=== PATIENT | male | born 1990 | race Caucasian/White ===

== ENCOUNTER 2021-01-07 04:04 | Inpatient (IN) | payer MEDICAID ==
[~2021-01-07] VITALS: Ht 177.8 cm; Wt 74.8 kg
[2021-01-07 04:14] VITALS: BP 135/98
--- NOTE | 2021-01-07 04:14 | NUR ---
TO BED AMBULATORY
--- NOTE | 2021-01-07 04:25 | NUR ---
30 YO M BIB WITH C/C OF R ARM 9 PAIN DESCRIBES CHRONIC PAIN ALL OVER PER PT X4 DAYS. PTS ARM IS SWOLLEN FROM AXILLA DOWN TO HAND. UPPER INNER RIGHT ARM IS HOT TO TOUCH, RED AND TENDER. UPPER ARM ALSO FEELS HARD TO TOUCH. PITTING EDEMA +1 ON RIGHT HAND. PT HAS LIMITED ROM. PAIN INCREASES WITH MOVEMENT, STATES NOTHING MAKES IT FEEL BETTER. PT STATES HE USES HEROIN BUT DENIES INJECTING INTO R ARM. LAST TIME PT USED HEROIN WAS 01/06. PT STATED HE FEELS SOB. SAT AT 98%, TACHY AT 109. PT GIVEN WATER PER REQUEST. PLACED IN GOWN. ALL NEEDS MET AT THIS TIME. BED LOCKED IN LOWEST POSITION, BOILER WATER TESTER RAILS X1. HX AND RX DENIES ALLERG: AUMENTIN (SEVERE) AND KETOROLAC Addendum: 01/07/21 at 0449 by [facility] 30 YO M BIB WITH C/C OF R ARM 910 PAIN DESCRIBES CHRONIC PAIN ALL OVER PER PT X4 DAYS. PTS ARM IS SWOLLEN FROM AXILLA DOWN TO HAND. UPPER INNER RIGHT ARM IS HOT TO TOUCH, RED AND TENDER. UPPER ARM ALSO FEELS HARD TO TOUCH. PITTING EDEMA +1 ON RIGHT HAND. PT HAS LIMITED ROM. PAIN INCREASES WITH MOVEMENT, STATES NOTHING MAKES IT FEEL BETTER. PT STATES HE USES HEROIN BUT DENIES INJECTING INTO R ARM. LAST TIME PT USED HEROIN WAS 01/06. PT STATED HE FEELS SOB. SAT AT 98%, TACHY AT 109. PT GIVEN WATER PER REQUEST. PLACED IN GOWN. ALL NEEDS MET AT THIS TIME. BED LOCKED IN LOWEST POSITION, BOILER WATER TESTER RAILS X1. HX AND RX DENIES ALLERG: AUMENTIN (SEVERE) AND KETOROLAC
[2021-01-07] MEDS ORDERED: NACL 0.9% 1,000 ML IV ONE ×2 (04:50→04:55)
[2021-01-07] MEDS ORDERED: VANCOMYCIN 1,000 MG in DEXTROSE 5% 250 ML IV ONE (04:50)
[2021-01-07] MEDS ORDERED: VANCOMYCIN 1,000 MG VIAL ONE (04:53)
--- NOTE | 2021-01-07 04:55 | NUR ---
BALTAZAR SWAB COLLECTED AND WALKED TO LAB
--- NOTE | 2021-01-07 05:29 | NUR ---
ULTRASOUND AT BEDSIDE
[2021-01-07 05:38] LABS: BASOPHILS % (AUTO) 0.1 % (0.0-2.0); EOSINOPHILS # (AUTO) 0.1 K/uL (0-0.4); EOSINOPHILS % (AUTO) 0.2 % (0.0-4.0); HEMATOCRIT 32.3 % (36-52); HEMOGLOBIN 10.4 g/dL (12.0-18.0); LYMPHOCYTES # (AUTO) 1.4 K/uL (2.0-11.5); LYMPHOCYTES % (AUTO) 5.2 % (20.5-51.1); MEAN CORPUSCULAR HEMOGLOBIN 24 pg (27-31); MEAN CORPUSCULAR HGB CONC 32 g/dL (33-37); MEAN CORPUSCULAR VOLUME 74.8 fL (80-94); MONOCYTES # (AUTO) 2.2 K/uL (0.8-1.0); MONOCYTES % (AUTO) 8.2 % (1.7-9.3); NEUTROPHILS # (AUTO) 23.7 K/uL (1.8-7.7); NEUTROPHILS % (AUTO) 86.3 % (42.2-75.2); PLATELET COUNT (AUTO) 438 K/uL (140-450); RED BLOOD CELL COUNT(AUTO) 4.32 MIL/uL (4.20-6.10); RED CELL DISTRIBUTION WIDTH 16.4 % (11.6-13.7)
[2021-01-07 05:39] LABS: WHITE BLOOD COUNT (AUTO) 27.4 K/uL (4.8-10.8)
[2021-01-07] MEDS ORDERED: PIPERACILLIN/TAZOBACTAM 3.375 GM in DEXTROSE 5% 50 ML IV ONE (05:55)
[2021-01-07 06:00] LABS: ALBUMIN 0.9 g/dL (3.4-5.0); ANION GAP 11.5 (8-16); CARBON DIOXIDE 26.2 mmol/L (21-32); POTASSIUM 3.7 mmol/L (3.5-5.1); TOTAL BILIRUBIN 0.2 mg/dL (0.0-1.0)
--- NOTE | 2021-01-07 06:02 | NUR ---
RAD AT BEDSIDE.
[2021-01-07] MEDS ORDERED: KETOROLAC 15 MG/ML VIAL IVP ONE (06:15)
[2021-01-07] MEDS ORDERED: cefTRIAXone 1,000 MG VIAL ONE (06:22)
[2021-01-07] MEDS ORDERED: NACL 0.9% 1,000 ML IV SCH (06:30)
[2021-01-07 06:48] LABS: APPEARANCE,URINE CLEAR (CLEAR); BILIRUBIN,URINE NEGATIVE (NEGATIVE); BLOOD, URINE 1+ (NEGATIVE); COLOR,URINE YELLOW (YELLOW); LEUKOCYTE ESTERASE ,URINE NEGATIVE (NEGATIVE); NITRITE, URINE NEGATIVE (NEGATIVE); UGLUCOSE NEGATIVE (NEGATIVE)
[2021-01-07] MEDS ORDERED: ACETAMINOPHEN EXTRA STRENGTH 500 MG TAB PO ONE (07:00)
[2021-01-07 07:03] LABS: BARBITURATE, URINE NEGATIVE ng/ml (NEG <=200); BENZODIAZEPINE, URINE NEGATIVE ng/mL (NEG <=200); CANNABINOID, URINE POSITIVE ng/mL (NEG <=50); COCAINE, URINE NEGATIVE ng/mL (NEG <=300); OPIATE, URINE POSITIVE ng/mL (NEG <=2000); PHENCYCLIDINE SCREEN,URINE NEGATIVE ng/mL (NEG <=25)
--- NOTE | 2021-01-07 07:20 | NUR ---
Pt report given to RAFI DE OLIVEIRA. Transfer of care at this time.
[2021-01-07 07:22] LABS: RBC,URINE 0-5 /HPF (0-5); WBC,URINE 0-5 /HPF (0-5)
[2021-01-07] MEDS ORDERED: MORPHINE SULFATE 4 MG/ML SYR IVP ONE (07:35)
[2021-01-07] MEDS ORDERED: ONDANSETRON 4 MG/2 ML VIAL IVP ONE (07:35)
[2021-01-07] MEDS ORDERED: HEPARIN PER PHARMACY MC PRN ×2 (09:20→10:25)
[2021-01-07 09:44] LABS: ANION GAP 13.4 (8-16); CARBON DIOXIDE 23.2 mmol/L (21-32); POTASSIUM 3.6 mmol/L (3.5-5.1)
[2021-01-07 09:46] LABS: CREATININE 4.9 mg/dL (0.6-1.3)
[2021-01-07 10:11] LABS: PROTHROMBIN TIME 10.7 secs (10.8-13.4)
[2021-01-07] MEDS ORDERED: ZOLPIDEM 5 MG TAB PO PRN (10:20)
[2021-01-07] MEDS ORDERED: DOCUSATE SODIUM 100 MG GELCAP PO PRN (10:20)
[2021-01-07] MEDS ORDERED: LORazepam 2 MG/ML VIAL IM/IVP PRN (10:20)
[2021-01-07] MEDS ORDERED: SODIUM PHOS / POTASSIUM PHOS 1 PKT PDR PO PRN (10:20)
[2021-01-07] MEDS ORDERED: MAG SULF 2000 MG/WATER PREMIX 50 ML IV PRN (10:20)
[2021-01-07] MEDS ORDERED: POTASSIUM CHLORIDE 10 MEQ TABER PO PRN (10:20)
[2021-01-07] MEDS ORDERED: VANCOMYCIN PER PHARMACY MC PRN (10:25)
[2021-01-07] MEDS ORDERED: LORazepam 1 MG TAB PO SCH (10:45)
[2021-01-07] MEDS: NACL 0.9% 1,000 ML IV SCH ×2 (11:13→20:20)
[2021-01-07] MEDS: hePARIN / DEXT 5% PREMIX 250 ML IV SCH (12:09)
[2021-01-07 12:10] LABS: CHOL/HDL RATIO 6.6 (1-4.5); PHOSPHORUS 4.9 mg/dL (2.5-4.9)
[2021-01-07 12:11] LABS: FREE T4 (FREE THYROXINE) 0.88 ng/dL (0.76-1.46); THYROID STIMULATING HORMONE 1.36 uIU/mL (0.34-3.74)
[2021-01-07] MEDS: LORazepam 2 MG/ML VIAL IM/IVP PRN (15:52)
[2021-01-07] MEDS: MORPHINE SULFATE 2 MG/ML SYR IVP PRN (17:17)
--- NOTE | 2021-01-07 19:20 | NUR ---
REPORT GIVEN TO RAFI MANLEY. ALL CARES TRANSFERRED AT THIS TIME.
--- NOTE | 2021-01-07 20:08 | NUR ---
HEPARIN INCREASED PER PROTOCOL
--- NOTE | 2021-01-07 20:24 | NUR ---
PER HEPARIN PROTOCOL 6000U HEPARIN GIVEN
[2021-01-07] MEDS: CLINDAMYCIN 600 MG in DEXTROSE 5% 50 ML IV SCH (21:00)
--- NOTE | 2021-01-07 21:39 | NUR ---
UNABLE TO OBTAIN SECONDARY IV ACCESS FOR ADDITIONAL MED ADMINISTRATION
--- NOTE | 2021-01-08 01:12 | NUR ---
CONTACTED DR. ADAN AT THIS TIME REGARDING HEPRIN PROTOCOL, ADVISED THAT PHARMACY IS MANAGING AND TO CONTACT AND FOLLOW PHARMACY INSTRUCTION.
--- NOTE | 2021-01-08 01:21 | NUR ---
CONTACTED PHARMACY AT THIS TIME REGARDING HEPARIN ADJUSTMENT, STATED HE WILL CALL BACK WITH VERIFICATION
--- NOTE | 2021-01-08 01:36 | NUR ---
PER PHARMACY CONTINUE WITH HEPARIN PROTOCOL ORDERED/
--- NOTE | 2021-01-08 01:41 | NUR ---
6000U BOLUS AND RATE INCREASE INITIATED AT THIS TIME.
[2021-01-08] MEDS: MORPHINE SULFATE 2 MG/ML SYR IVP PRN (01:50)
[2021-01-08] MEDS ORDERED: MEROPENEM 1,000 MG in NACL 0.9% 100 ML IV SCH ×2 (03:00→09:00)
[2021-01-08] MEDS: HYDROcodone/APAP 5/325 MG 1 TAB TAB PO PRN ×3 (04:43→20:13)
--- NOTE | 2021-01-08 07:15 | NUR ---
Report and continuation of care received from RAFI Livingston.
[2021-01-08 07:26] LABS: HEMATOCRIT 32.8 % (36-52); HEMOGLOBIN 10.5 g/dL (12.0-18.0); MEAN CORPUSCULAR HEMOGLOBIN 24 pg (27-31); MEAN CORPUSCULAR HGB CONC 32 g/dL (33-37); MEAN CORPUSCULAR VOLUME 74.2 fL (80-94); PLATELET COUNT (AUTO) 471 K/uL (140-450); RED BLOOD CELL COUNT(AUTO) 4.42 MIL/uL (4.20-6.10); RED CELL DISTRIBUTION WIDTH 16.8 % (11.6-13.7)
--- NOTE | 2021-01-08 07:30 | NUR ---
Patient asleep in bed in low-fowlers. plumbing engineering draftsperson in place. Bed locked in lowest position, side rails x 1, call light in reach.
[2021-01-08 08:08] LABS: HEPATITIS A ANTIBODY IGM Negative (Negative); HEPATITIS B CORE AB TOTAL Negative (Negative); HEPATITIS B SURFACE ANTIBODY Non Reactive (.); HEPATITIS B SURFACE ANTIGEN Negative (Negative)
[2021-01-08 08:09] LABS: ALBUMIN 0.9 g/dL (3.4-5.0); ANION GAP 15.1 (8-16); CARBON DIOXIDE 21.8 mmol/L (21-32); MAGNESIUM 1.8 mg/dL (1.8-2.4); POTASSIUM 3.9 mmol/L (3.5-5.1); TOTAL BILIRUBIN 0.3 mg/dL (0.0-1.0)
--- NOTE | 2021-01-08 08:25 | NUR ---
RECEIVE REPORT FROM ER NURSE.
--- NOTE | 2021-01-08 08:38 | NUR ---
Patient will be admitted to care of Dr. Gonzales. Admited to Telemetry. Will go to room 106A. Belongings list completed. Report to RAFI Peoples
[2021-01-08 08:40] LABS: CREATININE 5.9 mg/dL (0.6-1.3)
[2021-01-08 08:41] LABS: WHITE BLOOD COUNT (AUTO) 26.8 K/uL (4.8-10.8)
[2021-01-08 08:42] LABS: LYMPHOCYTES % (MANUAL) 6 % (20-46)
[2021-01-08 08:43] LABS: MONOCYTES % (MANUAL) 5 % (5-12)
[2021-01-08] MEDS: hePARIN / DEXT 5% PREMIX 250 ML IV SCH (10:18)
--- NOTE | 2021-01-08 10:58 | NUR ---
DC PLANNIN YRS OLD MALE PATIENT WAS ADMITTED FROM HOME WITH A DX OF RT ARM CELLULITES. PATIENT HAS NO MEDICAL HISTORY , IV DRUG USE (HEROIN). ADMINISTERED IVF, IV ABX VANCOMYCIN AND HEPRIN DRIP. ORDERED ECHO TO R/O ENDOCARDITIS . CONSULTED WITH ID AND NEPHRO FOR ELEVATED CREATININE. DC PLAN TO GO HOME WHEN STABLE. Addendum: 01/11/21 at 1618 by Dali Mcknight RN DC PLANNING: RECEIVED A CALL FROM [facility] VILLARREAL STILL AWAITING FOR BED ONCE THEY HAVE A BED WILL CALL THE UNIT AND HOUSE SUP , THEY WILL ARRANGE TRANSPORT WELL. CM TO FOLLOW
[2021-01-08] MEDS ORDERED: CLONIDINE HYDROCHLORIDE 0.1 MG TAB PO ONE (11:55)
[2021-01-08] MEDS: METOPROLOL 25 MG TAB PO SCH ×2 (12:52→20:52)
[2021-01-08] MEDS ORDERED: VANCOMYCIN 1,000 MG in DEXTROSE 5% 250 ML IV SCH (13:00)
[2021-01-08] MEDS: CLINDAMYCIN 600 MG in DEXTROSE 5% 50 ML IV SCH ×2 (13:00→21:00)
[2021-01-08] MEDS: LORazepam 2 MG/ML VIAL IM/IVP PRN ×2 (13:13→20:13)
--- NOTE | 2021-01-08 13:26 | NUR ---
PATIENT AWAKE AND ALERT. PATIENT AGITATED. PATIENT STATED HE FEELS LIKE HE HAS WITHDRAWALS. CALL LIGHT WITHIN REACH. ALL SAFETY MEASURES IN PLACE. WILL CONTINUE TO MONITOR.
--- NOTE | 2021-01-08 15:01 | NUR ---
PATIENT HAS BEEN SCREENED AND CATEGORIZED LOW NUTRITION RISK. PATIENT WILL BE SEEN WITHIN 7 DAYS OF ADMISSION. 01/13/[address]
--- NOTE | 2021-01-08 15:12 | NUR ---
PATIENT AWAKE AND ALERT. PATIENT AGITATED. PATIENT STATED HE FEELS LIKE HE HAS WITHDRAWALS. CALL LIGHT WITHIN REACH. ALL SAFETY MEASURES IN PLACE. WILL CONTINUE TO MONITOR. Addendum: 01/08/21 at 1512 by Richelle Cooper RN RN DUPLICATE NOTE.
--- NOTE | 2021-01-08 15:13 | NUR ---
PATIENT SLEEPING. RESPIRATIONS EVEN AND UNLABORED. CALL LIGHT WITHIN REACH. ALL SAFETY MEASURES IN PLACE. WILL CONTINUE TO MONITOR.
[2021-01-08 16:00] VITALS: BP 126/79
[2021-01-08] MEDS: MEROPENEM 500 MG in NACL 0.9% 50 ML IV SCH (16:07)
--- NOTE | 2021-01-08 16:18 | NUR ---
PATIENT IS A 30 YEAR OLD MALE ADMITTED AT THE ED ON 01/07/2021. DUE TO CIRCUMFERENTIALLY SWOLLEN RIGHT ARM AND HISTORY OF IV DRUG USE. SW MET WITH PATIENT AT BEDSIDE TO DISCUSS AND GATHER PATIENT'S COLLATERAL INFORMATION. PATIENT REPORTED THAT HE LIVES WITH FAMILY AT [place] AND HAS FAMILY SUPPORT FROM HIS MOTHER. PER PATIENT HE IS ABLE TO STAY THERE WITH MOTHER HOWEVER; HAS SOME CONFLICT WITH HER DUE TO HIS DRUG USE. PER PATIENT HE WILL RETURN TO HER HOUSE BUT WILL BE LOOKING FOR ANOTHER PLACE TO LIVE SOON DUE TO THE DISCORD BETWEEN THEM. ETL PROGRAMMER PROVIDED PATIENT WITH RESOURCES TO PRISON LIST, TRANSITIONAL AND LOW COST IN HOUSING WELL SUBSTANCE ABUSE PROGRAMS LIST. PATIENT REPORTED HAVING NO ISSUES GETTING OR TAKING HIS MEDICATIONS PRESCRIBED. PATIENT ALSO REPORTED NOT HAVING ANY DME NEEDS. PATIENT STATED THAT HE WILL TRY TO HAVE HIS MOTHER PICK HIM UP OR WILL MAY NEED A BUS PASS TO GO BACK TO HIS MOTHERS HOME AFTER HE IS DISCHARGE. SW WILL FOLLOW UP NEEDED.
[2021-01-08] MEDS: NACL 0.9% 1,000 ML IV SCH (16:20)
[2021-01-08] MEDS ORDERED: CLONIDINE HYDROCHLORIDE 0.1 MG TAB PO PRN (16:35)
--- NOTE | 2021-01-08 17:25 | NUR ---
PATIENT AWAKE. PATIENT NOTED TO BE AGITATED. PATIENT STOOD OUT OF BED PULLING BOTH IVs OUT. IV CATHETER INTACT. WILL ATTEMPT TO START NEW ONE.
--- NOTE | 2021-01-08 17:30 | NUR ---
NOT ABLE START IV NOTIFIED STRIPER THAT PATIENT PULLED OUT IV AND NOT ABLE TO CONTINUE HEPARIN. STRIPER CALLED ER NURSE TO ASSIST. PATIENT CONTINUE TO BE AGITATED REQUEST MORPHINE. EXPLAINED TO PATIENT THAT HE DOES NOT HAVE IV ACCESS TO GET MORPHINE. PATIENT THREATEN TO LEAVE AMA.
--- NOTE | 2021-01-08 18:00 | NUR ---
ER NURSE AT BEDSIDE ATTEMPTING TO START IV.
--- NOTE | 2021-01-08 18:10 | NUR ---
ER NURSE NOT ABLE TO START IV RECOMMENDS TO ASK DOCTOR MIDLINE OR CENTRAL LINE. PATIENT CONTINUE TO BE AGGRESSIVE REQUESTING MORPHINE.
--- NOTE | 2021-01-08 18:11 | NUR ---
NOTIFIED DR. BRITO THAT PATIENT PULLED OUT IV AND IS AGGRESSIVE AND REQUESTING IM MORPHINE. ALSO ASKED IF MIDLINE OR CENTRAL LINE CAN BE STARTED. PER DOCTOR ORDER. OK FOR MIDLINE OR CENTRAL LINE. NO MORPHINE IM PATIENT HAS DRUG DEPENDENCY.
--- NOTE | 2021-01-08 18:15 | NUR ---
NOTIFIED KITCHEN ASSISTANT THAT PATIENT NEEDS MIDLINE ACCESS EKTA HEPARIN DRIP HAS STOPPED. ALSO INFORMED PATIENT OF CURRENT SITUATION AND NEEDING TO WAIT FOR MIDLINE. CHARGE NURSE AT BEDSIDE PATIENT ONLY RESPONDS OK.
--- NOTE | 2021-01-08 18:30 | NUR ---
PATIENT SLEEPING. NO ACUTE DISTRESS NOTED. BREATHING EVEN AND UNLABORED. ALL SAFETY MEASURES IN PLACE. CALL LIGHT WITHIN REACH. WILL CONTINUE TO MONITOR.
--- NOTE | 2021-01-08 18:55 | NUR ---
DR. URBINA STATE PATIENT WILL NOT TALK TO HIM. HE NOTED IV TO BE OUT REQUEST FOR PATIENT TO START ON LEVENOX 80 MG Q12 HOURS. ALSO RECOMMEND THAT ONCE PATIENT IS DISCHARGED CONTINUE FOR THREE MONTH EITHER ELIQUIS 5 MG BID OR XARELTO 20 MG DAILY DEPENDING ON WHAT INSURANCE WILL COVER.
--- NOTE | 2021-01-08 19:25 | NUR ---
ENDORSED TO BURRER MARKER AXLE NURSE FOR CONTINUITY OF CARE.
--- NOTE | 2021-01-08 19:26 | NUR ---
RECEIVED REPORT FROM AM NURSE. PATIENT AWAKE, ALERT IN BED. NO SOB NOTED RESPIRATION EVEN UNLABORED. ALL SAFETY PRECAUTIONS ARE IN PLACE. AMBULATORY. CALL LIGHT WITHIN REACH. WILL CONTINUE TO MONITOR.
[2021-01-08 20:00] VITALS: BP 137/86
--- NOTE | 2021-01-08 20:13 | NUR ---
PATIENT IS AGITATED AND YELLING. ATIVAN 2 MG GIVEN IM ORDERED PRN.
[2021-01-08] MEDS ORDERED: ENOXAPARIN 80 MG/0.8 ML SYR SUBQ SCH (20:30)
[2021-01-08] MEDS: ACETAMINOPHEN 325 MG TAB PO PRN (20:52)
--- NOTE | 2021-01-08 20:54 | NUR ---
LOVENOX 80 UNITS GIVEN SQ PER PHARMACY RECOMMENDATION. DR. BRITO MADE AWARE. DR BRITO GAVE A NEW ORDER OF HEPARIN 5000 UNITS SQ EVERY 8H FOR DVT ON THE RIGHT UPPER ARM.
[2021-01-09] VITALS: BP 108/71
--- NOTE | 2021-01-09 01:45 | NUR ---
START HEPARIN ON 01/09/21 AT 2100 PER PHARMACY RECOMMENDATION.
[2021-01-09] MEDS: NACL 0.9% 1,000 ML IV SCH ×3 (02:20→23:47)
[2021-01-09] MEDS: MEROPENEM 500 MG in NACL 0.9% 50 ML IV SCH ×2 (03:00→15:16)
[2021-01-09 04:00] VITALS: BP 126/98
[2021-01-09] MEDS: CLINDAMYCIN 600 MG in DEXTROSE 5% 50 ML IV SCH ×3 (05:00→20:49)
[2021-01-09] MEDS: LORazepam 2 MG/ML VIAL IM/IVP PRN ×4 (05:25→20:48)
--- NOTE | 2021-01-09 07:30 | NUR ---
RECEIVED REPORT FROM AM NURSE. PT IN BED WITH HOB ELEVATED. AOX4, ABLE TO MAKE NEEDS KNOWN VERBALLY. WITH C/O PAIN 10/10 ON RIGHT ARM. WILL MEDICATE WITH MORPHINE ORDERED. NO RESPIRATORY DISTRESS ON ROOM AIR. PT AMBULATORY. BOWEL AND BLADDER CONTINENT. NO IV SITE. SEEN BY DR BRITO, ORDERED PICC LINE, CONSENT OBTAINED. SKIN INTACT BUT WITH RIGHT ARM SWELLING AND TENDERNESS. SAFETY AND FALL PRECAUTIONS IN PLACE. CALL LIGHT WITHIN REACH. WILL CONTINUE TO MONITOR
--- NOTE | 2021-01-09 07:30 | NUR ---
ENDORSED TO AM NURSE FOR CONTINUITY OF CARE. PATIENT IS IN STABLE CONDITION.
[2021-01-09 08:00] VITALS: BP 148/85
--- NOTE | 2021-01-09 08:30 | NUR ---
MORPHINE GIVEN FOR 10/10 SEVERE PAIN ON JOSSY
--- NOTE | 2021-01-09 08:40 | NUR ---
DUE MEDS GIVEN
[2021-01-09] MEDS: METOPROLOL 25 MG TAB PO SCH ×2 (08:48→20:49)
[2021-01-09] MEDS: MORPHINE SULFATE 2 MG/ML SYR IVP PRN ×3 (08:48→23:03)
--- NOTE | 2021-01-09 09:10 | NUR ---
WITH X1 EPISODE OF VOMITING. ZOFRAN GIVEN
[2021-01-09] MEDS: ONDANSETRON 4 MG/2 ML VIAL IVP PRN ×2 (09:17→18:39)
--- NOTE | 2021-01-09 09:18 | NUR ---
PRN ATIVAN GIVEN FOR AGITATION
--- NOTE | 2021-01-09 11:07 | NUR ---
PICC LINE NURSE AT BEDSIDE
[2021-01-09 12:00] VITALS: BP 132/72
--- NOTE | 2021-01-09 12:00 | NUR ---
PICC PLACEMENT CONFIRMED BY XRAY. OK TO USE
[2021-01-09] MEDS ORDERED: HEPARIN PER PHARMACY MC PRN (12:05)
[2021-01-09] MEDS ORDERED: hePARIN / DEXT 5% PREMIX 250 ML IV SCH (12:05)
[2021-01-09] MEDS: hePARIN / DEXT 5% PREMIX 250 ML IV SCH ×2 (13:30→23:09)
[2021-01-09 13:37] LABS: BASOPHILS # (AUTO) 0.2 K/uL (0.00-0.22); BASOPHILS % (AUTO) 0.6 % (0.0-2.0); EOSINOPHILS # (AUTO) 0.1 K/uL (0-0.4); EOSINOPHILS % (AUTO) 0.2 % (0.0-4.0); HEMATOCRIT 32.9 % (36-52); HEMOGLOBIN 10.6 g/dL (12.0-18.0); LYMPHOCYTES # (AUTO) 1.9 K/uL (2.0-11.5); LYMPHOCYTES % (AUTO) 7.2 % (20.5-51.1); MEAN CORPUSCULAR HEMOGLOBIN 24 pg (27-31); MEAN CORPUSCULAR HGB CONC 32 g/dL (33-37); MEAN CORPUSCULAR VOLUME 74.4 fL (80-94); MONOCYTES # (AUTO) 1.7 K/uL (0.8-1.0); MONOCYTES % (AUTO) 6.5 % (1.7-9.3); NEUTROPHILS # (AUTO) 22.8 K/uL (1.8-7.7); NEUTROPHILS % (AUTO) 85.5 % (42.2-75.2); PLATELET COUNT (AUTO) 584 K/uL (140-450); RED BLOOD CELL COUNT(AUTO) 4.42 MIL/uL (4.20-6.10); RED CELL DISTRIBUTION WIDTH 17.3 % (11.6-13.7)
--- NOTE | 2021-01-09 13:42 | NUR ---
PT ASLEEP IN BED. HEPARIN DRIP STARTED ORDERED
[2021-01-09 13:47] LABS: ALBUMIN 0.9 g/dL (3.4-5.0); ANION GAP 18.6 (8-16); CARBON DIOXIDE 20.9 mmol/L (21-32); POTASSIUM 4.5 mmol/L (3.5-5.1); TOTAL BILIRUBIN 0.2 mg/dL (0.0-1.0)
[2021-01-09 13:48] LABS: WHITE BLOOD COUNT (AUTO) 26.6 K/uL (4.8-10.8)
[2021-01-09 13:56] LABS: CREATININE 7.1 mg/dL (0.6-1.3)
--- NOTE | 2021-01-09 15:18 | NUR ---
PT ASLEEP IN BED. NO APPARENT DISTRESS, FLACC 0
[2021-01-09 16:00] VITALS: BP 138/79
--- NOTE | 2021-01-09 18:38 | NUR ---
NORCO GIVEN FOR PAIN, ZOFRAN FOR NAUSEA. WITH X1 BM IN BED. PITO CARE RENDERED
[2021-01-09] MEDS: HYDROcodone/APAP 5/325 MG 1 TAB TAB PO PRN (18:39)
[2021-01-09 20:00] VITALS: BP 125/86
--- NOTE | 2021-01-09 20:00 | NUR ---
RECEIVED PATIENT ASLEEP IN BED. PATIENT IS DROWSY BUT EASILY AROUSABLE. PT ON ROOM AIR. NO SOB OR S/S OF DISTRESS NOTED AT THIS TIME. DOUBLE LUMEN PICC LINE IN PLACE ON THE LEFT UPPER ARM, BOTH LUMENS FLUSH WELL WITH GOOD BLOOD RETURN. EDEMA NOTED ON THE RIGHT ARM. PATIENT ON TELE MONITORING. BED LOWERED WITH CALL LIGHT WITHIN REACH
--- NOTE | 2021-01-09 21:30 | NUR ---
PATIENT HAD LOOSE BM IN BED. PT CLEANED. LINENS CHANGED. PATIENT TURNED AND REPOSITIONED FOR COMFORT
[2021-01-09] MEDS: ACETAMINOPHEN 325 MG TAB PO PRN (23:48)
[2021-01-10] VITALS: BP 151/98
[2021-01-10] MEDS: LORazepam 2 MG/ML VIAL IM/IVP PRN ×5 (00:53→21:52)
[2021-01-10] MEDS: NACL 0.9% 1,000 ML IV SCH ×2 (02:51→18:32)
[2021-01-10] MEDS: MEROPENEM 500 MG in NACL 0.9% 50 ML IV SCH ×2 (02:53→14:51)
[2021-01-10 04:00] VITALS: BP 137/81
--- NOTE | 2021-01-10 04:14 | NUR ---
PATIENT ASLEEP IN BED AT THIS TIME. NO S/S OF DISTRESS NOTED
[2021-01-10] MEDS: CLINDAMYCIN 600 MG in DEXTROSE 5% 50 ML IV SCH ×3 (05:38→21:31)
[2021-01-10 07:04] LABS: HEMATOCRIT 30.4 % (36-52); HEMOGLOBIN 9.8 g/dL (12.0-18.0); MEAN CORPUSCULAR HEMOGLOBIN 24 pg (27-31); MEAN CORPUSCULAR HGB CONC 32 g/dL (33-37); PLATELET COUNT (AUTO) 565 K/uL (140-450); RED BLOOD CELL COUNT(AUTO) 4.05 MIL/uL (4.20-6.10); RED CELL DISTRIBUTION WIDTH 16.9 % (11.6-13.7)
--- NOTE | 2021-01-10 07:29 | NUR ---
PATIENT ENDORSED TO AM NURSE. PT ENDORSED IN STABLE CONDITION
--- NOTE | 2021-01-10 07:30 | NUR ---
RECEIVED PATIENT FROM MEDIA SERVICES SPECIALIST NURSE FOR CONTINUITY OF CARE. PATIENT IS A/A/O X3, APPEAR DROWSY, UNSTEADY. RESPIRATORY EVEN AND UNLABORED, ON ROOM AIR. NO SIGN OF DISTRESS NOTED. SKIN WARM, DRY, NON DIAPHORETIC. RIGHT UPPER EXTREMITY ERYTHEMA, SWOLLEN NOTED. PICC LINE DOUBLE LUMENS NOTED ON LEFT UPPER ARM, INTACT AND PATENT, IS INFUSING FLUID ORDER. HEPARIN DRIP IS INFUSING @23ML/HR. PATIENT IS RESTING, ABLE TO MAKE NEED KNOWN. PLAN OF CARE DISCUSSED. PRECAUTION IN PLACE. CALL LIGHT WITHIN REACH. WILL CONTINUE TO MONITOR.
[2021-01-10 07:43] LABS: ALBUMIN 0.9 g/dL (3.4-5.0); ANION GAP 17.7 (8-16); CARBON DIOXIDE 19.5 mmol/L (21-32); POTASSIUM 4.2 mmol/L (3.5-5.1); TOTAL BILIRUBIN 0.2 mg/dL (0.0-1.0)
--- NOTE | 2021-01-10 07:46 | NUR ---
NEW PTT LEVEL IS 39.7, BOLUS 3000 UNITS OF HEPARIN GIVEN WITH EDUCATION, INCREASE DRIP 150 UNIT/HR. NEW HEPARIN DRIP RATE 24.5 ML/HR. PATIENT HAS NO SIGN OF BLEEDING. PRECAUTION IN PLACE. CALL LIGHT WITHIN REACH. WILL CONTINUE TO MONITOR.
[2021-01-10] MEDS: hePARIN / DEXT 5% PREMIX 250 ML IV SCH ×3 (07:47→18:37)
[2021-01-10 07:54] LABS: CREATININE 7.2 mg/dL (0.6-1.3)
[2021-01-10 08:00] VITALS: BP 146/85
[2021-01-10] MEDS: METOPROLOL 25 MG TAB PO SCH ×2 (08:06→21:00)
--- NOTE | 2021-01-10 08:06 | NUR ---
SCHEDULE MEDICATION GIVEN WITH EDUCATION, PATIENT TOLERATED WELL. NO SIGN OF DISTRESS NOTED. PRECAUTION IN PLACE. CALL LIGHT WITHIN REACH. WILL CONTINUE TO MONITOR.
[2021-01-10 08:07] LABS: WHITE BLOOD COUNT (AUTO) 29.3 K/uL (4.8-10.8)
[2021-01-10 08:08] LABS: LYMPHOCYTES % (MANUAL) 6 % (20-46)
[2021-01-10 08:09] LABS: MONOCYTES % (MANUAL) 5 % (5-12)
[2021-01-10] MEDS: MORPHINE SULFATE 2 MG/ML SYR IVP PRN ×2 (09:15→15:44)
--- NOTE | 2021-01-10 09:15 | NUR ---
PATIENT COMPLAINS OF PAIN 8/10 ON HIS RIGHT ARM. MORPHINE PRN GIVEN WITH EDUCATION. PATIENT TOLERATED WELL. NO SIGN OF DISTRESS NOTED. PRECAUTION IN PLACE. CALL LIGHT WITHIN REACH. WILL CONTINUE TO MONITOR.
--- NOTE | 2021-01-10 10:11 | NUR ---
PATIENT IS AGITATED, UNCOOPERATIVE. ATIVAN PRN GIVEN, PATIENT TOLERATED WELL. NO SIGN OF DISTRESS NOTED. PRECAUTION IN PLACE. CALL LIGHT WITHIN REACH. WILL CONTINUE TO MONITOR.
--- NOTE | 2021-01-10 10:15 | NUR ---
PATIENT IS SLEEPING, CHEST RISE AND FALL NOTED. AROUSABLE TO VOICE. NO SIGN OF DISTRESS NOTED. PRECAUTION IN PLACE. CALL LIGHT WITHIN REACH. WILL CONTINUE TO MONITOR.
[2021-01-10 12:00] VITALS: BP 135/82
--- NOTE | 2021-01-10 12:00 | NUR ---
PATIENT HAS LOOSE BM, CLEAN AND CHANGE PATIENT SHEET. PATIENT TOLERATED WELL. NO SIGN OF DISTRESS NOTED. PRECAUTION IN PLACE. CALL LIGHT WITHIN REACH.
--- NOTE | 2021-01-10 12:33 | NUR ---
Spoke to Dr. Castro, neuphrologist and will accept the patient at [facility]. contacted the nursing patrol supervisor and no bed available, stated it is a lateral transfer and does not accept lateral transfer. surgeon need to evaluate first the hand. No surgeon consult and Dr. Castro will put a consult. Patient has [employer] insurance. Addendum: 01/11/21 at 1323 by Dali Mcknight RN DC PLANNING: RECEIVED A CALL FROM [facility] [phone] SPOKE WITH RADHA ESCOBEDO STATED TO FAX THE ORDER TO [phone] AND THE CLINICALS TO [phone]. PER GREGG STATED [facility] WILL BE THE CONTRACTED FACILITY AND HAVE HAND SURGEON. FAXED ALL THE ORDER AND CLINICALS. CM TO FOLLOW Addendum: 01/11/21 at 1542 by Dali Mcknight RN DC PLANNING: CALLED [phone] SPOKE WITH [facility] VILLARREAL MD APPROVED FOR TRANSFER TO [facility], SHE SUBMITTED THE REQUEST TO [facility] ONCE BED IS AVAILABLE ZAIDA WILL CALL WITH AUTH FOR TRANSPORT. I PROVED THE UNIT NUMBER JUST INCASE IF THEY CALL AFTER HOURS. CM TO FOLLOW
--- NOTE | 2021-01-10 13:09 | NUR ---
SCHEDULE MEDICATION GIVEN WITH EDUCATION. PATIENT TOLERATED WELL. NO SIGN OF DISTRESS NOTED. PRECAUTION IN PLACE. CALL LIGHT WITHIN REACH. WILL CONTINUE TO MONITOR.
--- NOTE | 2021-01-10 13:54 | NUR ---
PATIENT IS SLEEPING, CHEST RISE AND FALL NOTED, NO SIGN OF DISTRESS NOTED. PRECAUTION IN PLACE. CALL LIGHT WITHIN REACH. WILL CONTINUE TO MONITOR.
[2021-01-10] MEDS: DIPHENOXYLATE /ATROPINE 2.5 MG TAB PO PRN (14:52)
--- NOTE | 2021-01-10 15:44 | NUR ---
PATIENT COMPLAINS OF PAIN ON HIS RIGHT ARM. PRN MORPHINE GIVEN WITH EDUCATION, PATIENT VERBALIZED UNDERSTANDING. PATIENT TOLERATED WELL. NO SIGN OF DISTRESS NOTED. PRECAUTION IN PLACE. CALL LIGHT WITHIN REACH. WILL CONTINUE TO MONITOR.
[2021-01-10 16:00] VITALS: BP 152/81
--- NOTE | 2021-01-10 16:26 | NUR ---
PATIENT IS AGITATED, BEING ANXIOUS, UNABLE TO COOPERATIVE. ATIVAN PRN GIVEN WITH EDUCATION. PATIENT TOLERATED WELL. NO SIGN OF DISTRESS NOTED. PRECAUTION IN PLACE. CALL LIGHT WITHIN REACH. WILL CONTINUE TO MONITOR.
[2021-01-10] MEDS: ACETAMINOPHEN 325 MG TAB PO PRN (16:33)
--- NOTE | 2021-01-10 17:57 | NUR ---
PTT LEVEL IS 34.8. 6000 UNITS HEPARIN GIVEN. THE HEPARIN DRIP RATE WAS 24.5, INCREASE 3ML/HR, NEW RATE 27.5 ML/HR. THE MAX RATE IS 25ML/HR. TEXT DR CHAPARRO TO REGARDING THE PROBLEMS. WAITING FOR RESPONSE.
--- NOTE | 2021-01-10 19:19 | NUR ---
ENDORSED PATIENT TO PODIATRIC TECHNICIAN NURSE FOR CONTINUITY OF CARE. PATIENT IS STABLE.
[2021-01-10 20:00] VITALS: BP 109/61
--- NOTE | 2021-01-10 21:52 | NUR ---
PT IS AGITATED, STATED FEELING ANXIOUS. ATIVAN PRN ORDERED GIVEN. PT TOLERATED IT WELL. MEDICATION EDUCATION PROVIDED. ALL SAFETY PRECAUTIONS IN PLACE. WILL CONTINUE TO MONITOR.
[2021-01-11] VITALS: BP 132/79
--- NOTE | 2021-01-11 00:10 | NUR ---
CHECKED ON PT, SLEEPING. NO S/S OF DISTRESS. CHEST RISE AND FALL SYMMETRICAL. VITAL SIGNS STABLE. ALL SAFETY MEASURES IN PLACE. WILL CONTINUE TO MONITOR.
[2021-01-11] MEDS: hePARIN / DEXT 5% PREMIX 250 ML IV SCH ×3 (00:37→20:07)
--- NOTE | 2021-01-11 01:00 | NUR ---
LAB DRAWS DONE AT BEDSIDE FOR PTT LEVEL, RESULT, PTT IS 46.8 WHICH IS IN THERAPEUTIC RANGE. NO CHANGES TO RATE AT THIS TIME. NEXT NEW BAG OF HEPARIN HUNG AND CONTINUES TO RUN AT 2750 UNITS OR 27.5 MLS/HR. PT LYING IN BED RESTING WITH EYES CLOSED BUT AROUSABLE TO NAME AND LIGHT TOUCH. ALL REQUESTED NEEDS ATTENDED BY STAFF.
--- NOTE | 2021-01-11 02:30 | NUR ---
MADE ROUNDS ON PT. NO S/S OF DISTRESS. BREATHING IS UNLABORED. CALL LIGHT WITHIN REACH. ALL SAFETY MEASURES IN PLACE.
[2021-01-11] MEDS: MEROPENEM 500 MG in NACL 0.9% 50 ML IV SCH ×2 (03:12→15:17)
[2021-01-11 04:00] VITALS: BP 134/81
[2021-01-11] MEDS: NACL 0.9% 1,000 ML IV SCH ×2 (04:20→12:25)
--- NOTE | 2021-01-11 04:35 | NUR ---
PT IS AWAKE AND REQUESTED APPLE JUICE, NEEDS ATTENDED. PROVIDED COMFORT. NOT IN ANY SIGNS OF DISTRESS. ALL SAFETY MEASURES IN PLACE.
[2021-01-11] MEDS: MORPHINE SULFATE 2 MG/ML SYR IVP PRN ×4 (05:49→20:43)
[2021-01-11] MEDS: CLINDAMYCIN 600 MG in DEXTROSE 5% 50 ML IV SCH ×2 (05:55→12:01)
--- NOTE | 2021-01-11 06:00 | NUR ---
PT C/O SEVERE PAIN , HE WAS GIVEN IVP MORPHINE, IV ABT GIVEN ORDERED. ALL REQUESTED NEEDS ATTENDED BY STAFF. AWAITING NEW PTT FOR HEPARIN GTT NO S/S OF BLEEDING OR BRUISING NOTED.
[2021-01-11 07:07] LABS: HEMATOCRIT 26.7 % (36-52); HEMOGLOBIN 8.7 g/dL (12.0-18.0); MEAN CORPUSCULAR HEMOGLOBIN 24 pg (27-31); MEAN CORPUSCULAR HGB CONC 33 g/dL (33-37); MEAN CORPUSCULAR VOLUME 74.4 fL (80-94); PLATELET COUNT (AUTO) 493 K/uL (140-450); RED BLOOD CELL COUNT(AUTO) 3.59 MIL/uL (4.20-6.10); RED CELL DISTRIBUTION WIDTH 17.2 % (11.6-13.7)
--- NOTE | 2021-01-11 07:30 | NUR ---
RECEIVED REPORT FROM AM NURSE. PT IN BED WITH HOB ELEVATED. AOX3, with episodes of disorientation. ABLE TO MAKE NEEDS KNOWN VERBALLY. NO RESPIRATORY DISTRESS ON ROOM AIR. PT AMBULATORY WITH ASSIST. BOWEL AND BLADDER CONTINENT. KENNETH PICC RUNNING NS AT 100CC/HR AND HEPARIN AT 2750U/HR. SKIN INTACT BUT WITH RIGHT ARM SWELLING AND TENDERNESS. SAFETY AND FALL PRECAUTIONS IN PLACE. PLAN TO TRANSFER TO [facility] FOR R ARM NECROTIZING FASCITIS. CALL LIGHT WITHIN REACH. WILL CONTINUE TO MONITOR
[2021-01-11 08:00] VITALS: BP 128/79
[2021-01-11] MEDS: METOPROLOL 25 MG TAB PO SCH (08:44)
--- NOTE | 2021-01-11 09:00 | NUR ---
DUE MEDS GIVEN
[2021-01-11 09:07] LABS: ALBUMIN 0.7 g/dL (3.4-5.0); ANION GAP 19.3 (8-16); CARBON DIOXIDE 16.3 mmol/L (21-32); POTASSIUM 4.6 mmol/L (3.5-5.1); TOTAL BILIRUBIN 0.2 mg/dL (0.0-1.0)
[2021-01-11 09:20] LABS: LYMPHOCYTES % (MANUAL) 5 % (20-46); MONOCYTES % (MANUAL) 5 % (5-12)
--- NOTE | 2021-01-11 09:20 | NUR ---
X1 BM IN BED, PERICARE DONE
[2021-01-11 09:32] LABS: CREATININE 7.8 mg/dL (0.6-1.3)
[2021-01-11] MEDS: HYDROcodone/APAP 5/325 MG 1 TAB TAB PO PRN (09:46)
[2021-01-11] MEDS: DIPHENOXYLATE /ATROPINE 2.5 MG TAB PO PRN (09:46)
--- NOTE | 2021-01-11 11:00 | NUR ---
WITH C/O SEVERE PAIN IN RIGHT ARM AND RESTLESSNESS. ATIVAN AND MORPHINE GIVEN ORDERED
[2021-01-11] MEDS: LORazepam 2 MG/ML VIAL IM/IVP PRN ×2 (11:20→18:55)
[2021-01-11 12:00] VITALS: BP 116/70
--- NOTE | 2021-01-11 12:45 | NUR ---
BACK FROM CT OF RIGHT ARM
[2021-01-11] MEDS ORDERED: VANCOMYCIN 750 MG in DEXTROSE 5% 250 ML IV SCH (15:00)
--- NOTE | 2021-01-11 15:05 | NUR ---
CEO [place] [facility] AT BEDSIDE, TALKED TO PT ABOUT TRANSFER TO [facility], PT VERBALIZED UNDERSTANDING
[2021-01-11 16:00] VITALS: BP 142/85
--- NOTE | 2021-01-11 18:13 | NUR ---
REPORT GIVEN TO GALO DUTTON [phone] Addendum: 01/11/21 at 1814 by Raheem Ibanez RN JANELLE COLLADO
--- NOTE | 2021-01-11 18:20 | NUR ---
PER [facility], SHE WAS NOT ABLE TO ARRANGE TRANSPORT. ASKED HOSPITAL TO ARRANGE TRANSPORT
--- NOTE | 2021-01-11 18:54 | NUR ---
FAXED MEDICAL CERTIFICATE TO [facility]
--- NOTE | 2021-01-11 19:20 | NUR ---
REPORT GIVEN FROM AM NURSE. PATIENT IN BED AWAKE. NO SOB NOTED. RESPIRATION EVEN UNLABORED. IVF NS INFUSING ON THE KENNETH PICC LINE. HEPARIN DRIP AT 2750 UNITS RUNNING. ALL SAFETY MEASURES ARE IN PLACE. CALL LIGHT WITHIN REACH. NO COMPLAINTS OF PAIN AT THIS TIME. WILL CONTINUE TO MONITOR.
--- NOTE | 2021-01-11 19:55 | NUR ---
LAB CALLED FOR PTT RESULTS DRAWN [id number]. PATIENT ON HEPARIN DRIP. FOLLOW PROTOCOL.
--- NOTE | 2021-01-11 20:47 | NUR ---
COMPLAINED OF SEVERE PAIN 9/10 ON THE RIGHT ARM. MORPHINE 1 MG GIVEN ORDERED.
--- NOTE | 2021-01-11 20:50 | NUR ---
TRANSFERRED TO [facility] PICKED UP BY [facility] STAFF IN STABLE CONDITION. ALL HIS BELONGINGS ARE WITH THE PATIENT.
== END 2021-01-11 20:50 | disposition short-term general hospital (02) | DRG 720 ==
LOC: MED 04:04 → MTU 10:22
PROVIDERS: ADMIT Family Medicine; ATTEND Family Medicine
PROC: 02HV33Z Insertion of Infusion Device into Superior Vena Cava, Percutaneous Approach (ICD-10-PCS; principal; 2021-01-10)
DX: A41.9 Sepsis, unspecified organism (principal); N17.0 Acute kidney failure with tubular necrosis; M72.6 Necrotizing fasciitis; L03.113 Cellulitis of right upper limb; E83.51 Hypocalcemia; E87.1 Hypo-osmolality and hyponatremia; I82.623 Acute embolism and thrombosis of deep veins of upper extremity, bilateral; Z20.822 Contact with and (suspected) exposure to COVID-19; E78.5 Hyperlipidemia, unspecified; J98.11 Atelectasis; Z88.0 Allergy status to penicillin; Z88.8 Allergy status to other drugs, medicaments and biological substances; Z79.899 Other long term (current) drug therapy; Z59.00 Homelessness unspecified
CPT/HCPCS: 36415; 71045; 73060; 73090; 73120; 73200; 76770; 80048; 80053; 80202; 80305; 81001; 82150; 82728; 83036; 83540; 83605; 83690; 83735; 83880; 84100; 84439; 84443; 84484; 85025; 85045; 85610; 85730; 86160; 86704; 86706; 86708; 86709; 86803; 87040; 87081; 87340; 93005; 93971; 96365; 96368; 96375; 99291; G0482; J0696; J1644; J1650; J2060; J2185; J2270; J2405; J3370; J3490; J7060; Q0092